=== PATIENT | male | born 1960 | race African-American/Black ===

== ENCOUNTER 2018-08-28 12:15 | Inpatient (IN) ==
[2018-08-28] MEDS ORDERED: cefTRIAXone 1,000 MG in SODIUM CHLORIDE 0.9% 100 ML IV STA (12:43)
[2018-08-28 13:03] LABS: Basophils # 0.1 10*3/uL (0.0-0.2); Basophils % 0.6 % (0.0-0.8); Eosinophils # 0.2 10*3/uL (0.0-0.87); Eosinophils % 2.7 % (0.00-10.9); Hematocrit 37.4 VOL% (42.0-52.0); Hemoglobin 11.4 GM/DL (14.0-18.0); Immature Granulocytes % 0.7 %; Immature Granulocytes Absolute 0.06 #; Lymphocytes # 0.6 10*3/uL (1.4-4.0); Lymphocytes % 7.1 % (21.2-54.2); Mean Corpuscular HGB Conc 30.5 GM/DL (32-36); Mean Corpuscular Volume 90.3 FL (87-102); Mean Platelet Volume 11.1 FL (9.6-12.0); Neutrophils % 74.9 % (38.7-73.9); Platelet Count 140 T/CUMM (130-400); Red Blood Count 4.14 MC/CUMM (3.8-5.5); White Blood Count 8.8 T/CUMM (4-12)
[2018-08-28 13:21] LABS: PT Patient Result 10.7 SECS
[2018-08-28 13:33] LABS: Albumin 3.5 G/DL (3.4-5.0); Bilirubin,Total 1.2 MG/DL (0.2-1.0); Calcium 8.7 MG/DL (8.5-10.1); Osmolality,Calculated 320.8 MOS/KG (273-304); Total Protein 7.6 G/DL (6.4-8.3)
[2018-08-28 13:39] LABS: Salicylate < 2.8 MG/DL (2.8-20)
[2018-08-28 13:40] LABS: Acetaminophen < 2.0 UG/ML (10-30)
[2018-08-28 13:48] LABS: Apearance,Urine CLEAR (Clear); Bilirubin,Urine Negative (Negative); Blood, Urine Small mg/dL (Negative); Glucose,Urine (UA) Negative (Negative); Ketones,Urine Negative (Negative); Mucus,Urine Occasional /LPF (Occasional); Nitrite,Urine Negative (Negative); Protein,Urine Negative; RBC,Urine 5 /HPF (0-4); Urine Color Yellow (Yellow); Urine Specific Gravity 1.012 (1.001-1.035); Urine Urobilinogen < 2.0 EU/DL (0.2-1.0); WBC,Urine 2 /HPF (0-6)
[2018-08-28 14:06] LABS: Barbiturates Screen,Urine Negative (Negative); Benzodiazepines Screen,Urine Negative (Negative); Cannabinoid Screen,Urine Negative (Negative); Opiate Screen,Urine Negative (Negative); Phencyclidine Screen,Urine Negative (Negative)
[2018-08-28] MEDS ORDERED: SODIUM CHLORIDE 0.9% 1,000 ML IV STA ×2 (14:26→15:51)
[2018-08-28 14:31] LABS: Sedimentation Rate-Westergren 89 MM/HR (0-20)
[2018-08-28] MEDS ORDERED: ONDANSETRON 4 MG/2 ML VIAL IV PRN (16:06)
[2018-08-28] MEDS ORDERED: ENOXAPARIN 30 MG/0.3 ML SYRINGE SUBCUT SCH (17:00)
[2018-08-28] MEDS: SODIUM CHLORIDE 0.9% 1,000 ML IV SCH (18:58)
[2018-08-28] MEDS: TAMSULOSIN 0.4 MG CAPSULE PO SCH (20:30)
[2018-08-28] MEDS: ENOXAPARIN 30 MG/0.3 ML SYRINGE SUBCUT SCH (22:48)
[2018-08-28] MEDS: PIPERACILLIN/TAZOBACTAM 3,375 MG in SODIUM CHLORIDE 0.9% 100 ML IV SCH (22:56)
[2018-08-29 05:12] LABS: Basophils % 0.6 % (0.0-0.8); Eosinophils # 0.4 10*3/uL (0.0-0.87); Eosinophils % 6.1 % (0.00-10.9); Hemoglobin 10.1 GM/DL (14.0-18.0); Immature Granulocytes % 0.6 %; Immature Granulocytes Absolute 0.04 #; Lymphocytes # 0.9 10*3/uL (1.4-4.0); Lymphocytes % 12.7 % (21.2-54.2); Mean Corpuscular HGB Conc 30.6 GM/DL (32-36); Mean Corpuscular Volume 90.9 FL (87-102); Monocytes % 13.9 % (1.7-12.7); Neutrophils % 66.1 % (38.7-73.9); Platelet Count 136 T/CUMM (130-400); Red Blood Count 3.63 MC/CUMM (3.8-5.5); Red Cell Distribution Width 12.9 % (9.3-17.3); White Blood Count 6.8 T/CUMM (4-12)
[2018-08-29 05:50] LABS: Albumin 2.9 G/DL (3.4-5.0); Bilirubin,Total 1.2 MG/DL (0.2-1.0); Osmolality,Calculated 319.9 MOS/KG (273-304); Risk Ratio 2.61; Thyroid Stimulating Hormone 0.231 uIU/ml (0.358-3.74); Total Protein 6.4 G/DL (6.4-8.3); VLDL CHOLESTEROL 17.8 MG/DL
[2018-08-29] MEDS: SODIUM CHLORIDE 0.9% 1,000 ML IV SCH ×2 (06:45→06:51)
[2018-08-29] MEDS ORDERED: BUPIVACAINE 0.25% /EPI 10 ML VIAL ONE ×2 (09:14→10:22)
[2018-08-29] MEDS ORDERED: TISSUE ADHESIVE 1 EACH APPLICATOR TOP ONE (09:14)
[2018-08-29] MEDS: DEXTROSE 5% NACL 0.45% 1,000 ML IV SCH ×2 (09:17→18:09)
[2018-08-29] MEDS: PANTOPRAZOLE 40 MG TABLET PO SCH (09:18)
[2018-08-29] MEDS: PIPERACILLIN/TAZOBACTAM 3,375 MG in SODIUM CHLORIDE 0.9% 100 ML IV SCH (13:34)
[2018-08-29] MEDS ORDERED: ALBUMIN 5% 12.5 GM/250 ML VIAL IV ONE (14:51)
[2018-08-29] MEDS ORDERED: PROPOFOL 200 MG/20 ML VIAL IV ONE (14:51)
[2018-08-29] MEDS ORDERED: SEVOFLURANE 1 UNIT/15 MINUTE INH ONE (14:51)
[2018-08-29] MEDS ORDERED: SUFentanil 50 MCG/ML AMP ONE (14:52)
[2018-08-29] MEDS ORDERED: DEXAMETHASONE 4 MG/1 ML VIAL ONE (14:52)
[2018-08-29] MEDS ORDERED: ONDANSETRON 4 MG/2 ML VIAL ONE (14:52)
[2018-08-29] MEDS ORDERED: LACTATED RINGERS 2,000 ML IV ONE (14:53)
[2018-08-29] MEDS ORDERED: VECURONIUM 10 MG VIAL IV ONE (14:53)
[2018-08-29] MEDS ORDERED: PHENYLEPHRINE 1 MG/10 ML SYRINGE IV ONE (14:53)
[2018-08-29] MEDS ORDERED: NEOSTIGMINE 10 MG/10 ML VIAL ONE (14:53)
[2018-08-29] MEDS ORDERED: GLYCOPYRROLATE 0.4 MG/2 ML VIAL ONE (14:53)
[2018-08-29] MEDS: TAMSULOSIN 0.4 MG CAPSULE PO SCH (16:46)
[2018-08-29] MEDS ORDERED: VANCOMYCIN INJ 1,750 MG in SODIUM CHLORIDE 0.9% 500 ML IV SCH (18:00)
[2018-08-29] MEDS: ENOXAPARIN 30 MG/0.3 ML SYRINGE SUBCUT SCH (20:55)
[2018-08-30] MEDS: PIPERACILLIN/TAZOBACTAM 3,375 MG in SODIUM CHLORIDE 0.9% 100 ML IV SCH ×2 (03:00→13:51)
[2018-08-30] MEDS ORDERED: SODIUM CHLORIDE 0.9% 500 ML IV ONE (04:16)
[2018-08-30 04:20] LABS: Basophils % 0.5 % (0.0-0.8); Eosinophils # 0.1 10*3/uL (0.0-0.87); Eosinophils % 1.4 % (0.00-10.9); Hematocrit 27.7 VOL% (42.0-52.0); Hemoglobin 8.4 GM/DL (14.0-18.0); Immature Granulocytes % 0.9 %; Immature Granulocytes Absolute 0.07 #; Lymphocytes # 0.9 10*3/uL (1.4-4.0); Lymphocytes % 10.8 % (21.2-54.2); Mean Corpuscular HGB Conc 30.3 GM/DL (32-36); Mean Platelet Volume 11.2 FL (9.6-12.0); Monocytes % 11.9 % (1.7-12.7); Neutrophils % 74.5 % (38.7-73.9); Platelet Count 152 T/CUMM (130-400); Red Blood Count 2.98 MC/CUMM (3.8-5.5); Red Cell Distribution Width 12.9 % (9.3-17.3); White Blood Count 7.8 T/CUMM (4-12)
[2018-08-30 04:44] LABS: Albumin 2.6 G/DL (3.4-5.0); Bilirubin,Total 1.1 MG/DL (0.2-1.0); Calcium 8.2 MG/DL (8.5-10.1); Osmolality,Calculated 324.4 MOS/KG (273-304); Total Protein 5.6 G/DL (6.4-8.3)
[2018-08-30] MEDS: DEXTROSE 5% NACL 0.45% 1,000 ML IV SCH (05:33)
[2018-08-30] MEDS: DEXTROSE 5% 1,000 ML IV SCH ×2 (09:17→21:29)
[2018-08-30] MEDS: PANTOPRAZOLE 40 MG TABLET PO SCH (09:18)
[2018-08-30] MEDS: TAMSULOSIN 0.4 MG CAPSULE PO SCH (16:16)
[2018-08-30] MEDS: VANCOMYCIN INJ 1,750 MG in SODIUM CHLORIDE 0.9% 500 ML IV SCH (20:00)
[2018-08-30] MEDS: ENOXAPARIN 40 MG/0.4 ML SYRINGE SUBCUT SCH (21:29)
[2018-08-31] MEDS: PIPERACILLIN/TAZOBACTAM 3,375 MG in SODIUM CHLORIDE 0.9% 100 ML IV SCH ×2 (02:49→16:50)
[2018-08-31 06:11] LABS: Basophils % 0.5 % (0.0-0.8); Eosinophils # 0.4 10*3/uL (0.0-0.87); Eosinophils % 6.4 % (0.00-10.9); Hematocrit 23.9 VOL% (42.0-52.0); Hemoglobin 7.2 GM/DL (14.0-18.0); Immature Granulocytes % 1.3 %; Immature Granulocytes Absolute 0.08 #; Lymphocytes # 1.2 10*3/uL (1.4-4.0); Lymphocytes % 19.3 % (21.2-54.2); Mean Corpuscular HGB Conc 30.1 GM/DL (32-36); Mean Corpuscular Volume 92.3 FL (87-102); Mean Platelet Volume 11.3 FL (9.6-12.0); Monocytes % 11.3 % (1.7-12.7); Neutrophils % 61.2 % (38.7-73.9); Platelet Count 129 T/CUMM (130-400); Red Blood Count 2.59 MC/CUMM (3.8-5.5); Red Cell Distribution Width 12.9 % (9.3-17.3); White Blood Count 6.2 T/CUMM (4-12)
[2018-08-31] MEDS: DEXTROSE 5% 1,000 ML IV SCH (06:17)
[2018-08-31 06:31] LABS: Albumin 2.7 G/DL (3.4-5.0); Bilirubin,Total 1.7 MG/DL (0.2-1.0); Calcium 7.7 MG/DL (8.5-10.1); Osmolality,Calculated 313.6 MOS/KG (273-304); Total Protein 5.7 G/DL (6.4-8.3)
[2018-08-31] MEDS ORDERED: SODIUM CHLORIDE 0.9% 1,000 ML IV PRN ×2 (08:44→11:49)
[2018-08-31] MEDS ORDERED: FUROSEMIDE 20 MG/2 ML VIAL IV PRN ×2 (08:44→16:14)
[2018-08-31] MEDS: TAMSULOSIN 0.4 MG CAPSULE PO SCH (17:00)
[2018-08-31] MEDS: PANTOPRAZOLE 40 MG TABLET PO SCH (17:38)
[2018-08-31] MEDS: VANCOMYCIN INJ 1,750 MG in SODIUM CHLORIDE 0.9% 500 ML IV SCH (18:26)
[2018-08-31] MEDS: ENOXAPARIN 40 MG/0.4 ML SYRINGE SUBCUT SCH (21:19)
[2018-08-31 22:46] LABS: Hematocrit 26.4 VOL% (42.0-52.0); Hemoglobin 8.3 GM/DL (14.0-18.0)
[2018-09-01] MEDS: DEXTROSE 5% 1,000 ML IV SCH ×3 (02:51→23:37)
[2018-09-01 04:35] LABS: Basophils % 0.4 % (0.0-0.8); Eosinophils # 0.7 10*3/uL (0.0-0.87); Eosinophils % 8.7 % (0.00-10.9); Hematocrit 26.2 VOL% (42.0-52.0); Hemoglobin 8.2 GM/DL (14.0-18.0); Immature Granulocytes % 2.1 %; Immature Granulocytes Absolute 0.17 #; Lymphocytes # 1.6 10*3/uL (1.4-4.0); Lymphocytes % 19.9 % (21.2-54.2); Mean Corpuscular HGB Conc 31.3 GM/DL (32-36); Mean Corpuscular Volume 91.3 FL (87-102); Mean Platelet Volume 11.1 FL (9.6-12.0); Monocytes % 10.5 % (1.7-12.7); NRBC # 0.02 10*3/uL; Neutrophils % 58.4 % (38.7-73.9); Platelet Count 147 T/CUMM (130-400); Red Blood Count 2.87 MC/CUMM (3.8-5.5); Red Cell Distribution Width 13.1 % (9.3-17.3); White Blood Count 7.9 T/CUMM (4-12)
[2018-09-01] MEDS: PIPERACILLIN/TAZOBACTAM 3,375 MG in SODIUM CHLORIDE 0.9% 100 ML IV SCH ×3 (05:22→16:29)
[2018-09-01] MEDS: PANTOPRAZOLE 40 MG TABLET PO SCH (08:29)
[2018-09-01 14:10] LABS: ABG Base Excess 1.6 MMOL/L (-2.5-2.5); ABG HCO3 25.8 MMOL/L (20-26); ABG PCO2 36.1 MM HG (35-48); ABG PH 7.455 (7.35-7.45); ABG PO2 84.9 MM HG (80-95); ABG TCO2 23.5 MMOL/L (23-27); Allen Test Positive; Pt O2 Delivery Device Room Air
[2018-09-01] MEDS: HYDROCORTISONE 100 MG VIAL IV SCH ×2 (16:21→22:55)
[2018-09-01] MEDS: TAMSULOSIN 0.4 MG CAPSULE PO SCH (16:21)
[2018-09-01] MEDS: ALBUTEROL/IPRATROPIUM 3 ML NEB RESP TX SCH ×3 (17:36→23:50)
[2018-09-01] MEDS: VANCOMYCIN INJ 1,750 MG in SODIUM CHLORIDE 0.9% 500 ML IV SCH (18:38)
[2018-09-01] MEDS: ENOXAPARIN 40 MG/0.4 ML SYRINGE SUBCUT SCH (22:55)
[2018-09-02] MEDS: PIPERACILLIN/TAZOBACTAM 3,375 MG in SODIUM CHLORIDE 0.9% 100 ML IV SCH ×3 (01:30→16:33)
[2018-09-02] MEDS: ALBUTEROL/IPRATROPIUM 3 ML NEB RESP TX SCH ×6 (03:28→23:39)
[2018-09-02] MEDS: HYDROCORTISONE 100 MG VIAL IV SCH ×2 (05:38→15:25)
[2018-09-02 08:42] LABS: Calcium 7.1 MG/DL (8.5-10.1); Osmolality,Calculated 302.1 MOS/KG (273-304)
[2018-09-02] MEDS: PANTOPRAZOLE 40 MG TABLET PO SCH (09:07)
[2018-09-02] MEDS ORDERED: POTASSIUM CHLORIDE 20 MEQ TABLET PO ONE (09:48)
[2018-09-02] MEDS: TAMSULOSIN 0.4 MG CAPSULE PO SCH ×2 (10:27→22:16)
[2018-09-02] MEDS: DEXTROSE 5% 1,000 ML IV SCH ×2 (16:36→20:50)
[2018-09-02] MEDS: cefTRIAXone 1,000 MG in SYRINGE 1 EACH IV SCH (17:17)
[2018-09-02] MEDS: VANCOMYCIN INJ 1,750 MG in SODIUM CHLORIDE 0.9% 500 ML IV SCH (17:17)
[2018-09-02] MEDS: ENOXAPARIN 40 MG/0.4 ML SYRINGE SUBCUT SCH (22:16)
[2018-09-03] MEDS: ALBUTEROL/IPRATROPIUM 3 ML NEB RESP TX SCH ×5 (03:36→21:05)
[2018-09-03 05:00] LABS: Calcium 7.1 MG/DL (8.5-10.1); Osmolality,Calculated 298.4 MOS/KG (273-304)
[2018-09-03] MEDS ORDERED: HYDROCORTISONE 100 MG VIAL IV SCH (09:00)
[2018-09-03] MEDS: PANTOPRAZOLE 40 MG TABLET PO SCH (09:18)
[2018-09-03] MEDS: POTASSIUM CHLORIDE 20 MEQ TABLET PO PRN ×2 (09:18→14:22)
[2018-09-03] MEDS: TAMSULOSIN 0.4 MG CAPSULE PO SCH ×2 (09:18→20:00)
[2018-09-03] MEDS: DEXTROSE 5% 1,000 ML IV SCH (09:26)
[2018-09-03] MEDS: cefTRIAXone 1,000 MG in SYRINGE 1 EACH IV SCH (17:53)
[2018-09-03] MEDS: ENOXAPARIN 40 MG/0.4 ML SYRINGE SUBCUT SCH (20:00)
[2018-09-04] MEDS: ALBUTEROL/IPRATROPIUM 3 ML NEB RESP TX SCH ×4 (00:30→11:09)
[2018-09-04 08:14] VITALS: BP 144/79
[2018-09-04] MEDS: TAMSULOSIN 0.4 MG CAPSULE PO SCH (08:43)
[2018-09-04] MEDS: PANTOPRAZOLE 40 MG TABLET PO SCH (08:44)
[2018-09-04] MEDS ORDERED: predniSONE 20 MG TABLET PO SCH (09:00)
== END 2018-09-04 11:52 | disposition home or self-care (01) | DRG 418 ==
LOC: EDBD → EDUNIT# → N.ED 12:15 → N.EDINP 15:54 → N.4E 19:12
PROVIDERS: ADMIT Internal Medicine; ATTEND Internal Medicine
PROC: LAPCHOL (2018-08-29 09:48)

== ENCOUNTER 2018-09-26 08:08 | Inpatient (IN) ==
[2018-09-26 08:45] LABS: Basophils % 0.4 % (0.0-0.8); Eosinophils # 0.4 10*3/uL (0.0-0.87); Eosinophils % 5.7 % (0.00-10.9); Hematocrit 30.5 VOL% (42.0-52.0); Hemoglobin 9.1 GM/DL (14.0-18.0); Immature Granulocytes % 3.9 %; Immature Granulocytes Absolute 0.28 #; Lymphocytes # 2.1 10*3/uL (1.4-4.0); Lymphocytes % 29.4 % (21.2-54.2); Mean Corpuscular HGB Conc 29.8 GM/DL (32-36); Mean Corpuscular Volume 93.6 FL (87-102); Mean Platelet Volume 9.8 FL (9.6-12.0); Monocytes % 6.8 % (1.7-12.7); Neutrophils % 53.8 % (38.7-73.9); Platelet Count 132 T/CUMM (130-400); Red Blood Count 3.26 MC/CUMM (3.8-5.5); White Blood Count 7.2 T/CUMM (4-12)
[2018-09-26 09:18] LABS: Albumin 2.6 G/DL (3.4-5.0); Bilirubin,Total 0.7 MG/DL (0.2-1.0); Calcium 7.4 MG/DL (8.5-10.1); Osmolality,Calculated 290.7 MOS/KG (273-304); Thyroid Stimulating Hormone 1.57 uIU/ml (0.358-3.74); Total Protein 5.6 G/DL (6.4-8.3)
[2018-09-26] MEDS ORDERED: ZALEPLON 5 MG CAPSULE PO PRN (11:34)
[2018-09-26] MEDS ORDERED: ONDANSETRON 4 MG/2 ML VIAL IV PRN (11:38)
[2018-09-26] MEDS: ALBUTEROL/IPRATROPIUM 3 ML NEB RESP TX PRN (11:50)
[2018-09-26] MEDS: NYSTATIN 500,000 UNIT/5 ML UDCUP SWISH/SWAL SCH ×3 (14:38→20:13)
[2018-09-26] MEDS: OLANZapine 2.5 MG TABLET PO SCH ×2 (16:42→20:13)
[2018-09-26] MEDS: POTASSIUM CHLORIDE 20 MEQ TABLET PO SCH (16:42)
[2018-09-26] MEDS: TAMSULOSIN 0.4 MG CAPSULE PO SCH (20:12)
[2018-09-26] MEDS: ZINC OXIDE PASTE 113 GM TUBE TOP SCH (20:12)
[2018-09-26] MEDS: ENOXAPARIN 30 MG/0.3 ML SYRINGE SUBCUT SCH (20:12)
[2018-09-26] MEDS: buPROPion XL 150 MG TABLET PO SCH (20:13)
[2018-09-26] MEDS: MAGNESIUM CHLORIDE 64 MG TABLET PO SCH (20:13)
[2018-09-27] MEDS: ALBUTEROL/IPRATROPIUM 3 ML NEB RESP TX PRN (00:15)
[2018-09-27 06:33] LABS: Basophils % 0.5 % (0.0-0.8); Calcium 7.5 MG/DL (8.5-10.1); Eosinophils # 0.4 10*3/uL (0.0-0.87); Eosinophils % 5.7 % (0.00-10.9); Hematocrit 30.6 VOL% (42.0-52.0); Immature Granulocytes % 2.9 %; Immature Granulocytes Absolute 0.19 #; Lymphocytes # 1.6 10*3/uL (1.4-4.0); Lymphocytes % 24.8 % (21.2-54.2); Mean Corpuscular HGB Conc 29.4 GM/DL (32-36); Mean Corpuscular Volume 93.9 FL (87-102); Mean Platelet Volume 9.7 FL (9.6-12.0); Monocytes % 7.9 % (1.7-12.7); Neutrophils % 58.2 % (38.7-73.9); Osmolality,Calculated 289.8 MOS/KG (273-304); Platelet Count 124 T/CUMM (130-400); Red Blood Count 3.26 MC/CUMM (3.8-5.5); Risk Ratio 2.95; VLDL CHOLESTEROL 28.6 MG/DL; White Blood Count 6.6 T/CUMM (4-12)
[2018-09-27] MEDS ORDERED: ceFAZolin 1,000 MG VIAL IRRIG ONE (08:10)
[2018-09-27] MEDS ORDERED: DIAZEPAM 5 MG TABLET PO ONE (08:10)
[2018-09-27] MEDS ORDERED: ceFAZolin 1,000 MG in SYRINGE 1 EACH IV ONE (08:10)
[2018-09-27] MEDS ORDERED: diphenhydrAMINE CAP 25 MG CAPSULE PO ONE (08:10)
[2018-09-27] MEDS ORDERED: SODIUM CHLORIDE 0.9% 1,000 ML IV SCH (08:30)
[2018-09-27] MEDS ORDERED: Fluticasone Furoate-Vilanterol [Breo Ellipta] INH SCH (09:00)
[2018-09-27] MEDS: FOLIC ACID 0.4 MG TABLET PO SCH (09:18)
[2018-09-27] MEDS: MAGNESIUM CHLORIDE 64 MG TABLET PO SCH ×2 (09:18→20:49)
[2018-09-27] MEDS: POTASSIUM CHLORIDE 20 MEQ TABLET PO SCH (09:18)
[2018-09-27] MEDS: TAMSULOSIN 0.4 MG CAPSULE PO SCH ×2 (09:18→20:49)
[2018-09-27] MEDS: buPROPion XL 150 MG TABLET PO SCH ×2 (09:18→20:49)
[2018-09-27] MEDS: ASPIRIN EC 81 MG TABLET PO SCH (09:19)
[2018-09-27] MEDS: predniSONE 20 MG TABLET PO SCH (09:19)
[2018-09-27] MEDS: PANTOPRAZOLE 40 MG TABLET PO SCH (09:19)
[2018-09-27] MEDS: NYSTATIN 500,000 UNIT/5 ML UDCUP SWISH/SWAL SCH ×4 (09:20→20:49)
[2018-09-27] MEDS: ZINC OXIDE PASTE 113 GM TUBE TOP SCH ×2 (09:20→20:49)
[2018-09-27] MEDS: DOCUSATE SODIUM 100 MG CAPSULE PO SCH (09:20)
[2018-09-27] MEDS ORDERED: ceFAZolin 1,000 MG VIAL ONE (10:45)
[2018-09-27] MEDS ORDERED: methylPREDNISolone SOD SUC 125 MG/2 ML VIAL ONE (10:45)
[2018-09-27] MEDS ORDERED: MIDAZOLAM 2 MG/2 ML VIAL ONE (10:45)
[2018-09-27] MEDS ORDERED: TISSUE ADHESIVE 1 EACH APPLICATOR TOP ONE (10:45)
[2018-09-27] MEDS ORDERED: fentaNYL 100 MCG/2 ML VIAL ONE (10:45)
[2018-09-27] MEDS ORDERED: LIDOCAINE 1% 20 ML VIAL ONE (10:45)
[2018-09-27] MEDS ORDERED: oxyCODONE/ACETAMINOPHEN 5-325 MG TABLET PO PRN (12:06)
[2018-09-27] MEDS: OLANZapine 2.5 MG TABLET PO SCH ×2 (16:26→20:49)
[2018-09-27] MEDS: ENOXAPARIN 30 MG/0.3 ML SYRINGE SUBCUT SCH (20:49)
[2018-09-28 03:26] LABS: Basophils % 0.2 % (0.0-0.8); Hematocrit 31.5 VOL% (42.0-52.0); Hemoglobin 9.3 GM/DL (14.0-18.0); Immature Granulocytes % 1.2 %; Lymphocytes # 0.6 10*3/uL (1.4-4.0); Lymphocytes % 6.6 % (21.2-54.2); Mean Corpuscular HGB Conc 29.5 GM/DL (32-36); Mean Corpuscular Volume 92.9 FL (87-102); Mean Platelet Volume 10.5 FL (9.6-12.0); Platelet Count 148 T/CUMM (130-400); Red Blood Count 3.39 MC/CUMM (3.8-5.5); Red Cell Distribution Width 14.8 % (9.3-17.3); White Blood Count 8.7 T/CUMM (4-12)
[2018-09-28 03:36] LABS: Calcium 7.8 MG/DL (8.5-10.1); Osmolality,Calculated 292.8 MOS/KG (273-304)
[2018-09-28] MEDS: FOLIC ACID 0.4 MG TABLET PO SCH (09:19)
[2018-09-28] MEDS: ASPIRIN EC 81 MG TABLET PO SCH (09:19)
[2018-09-28] MEDS: predniSONE 20 MG TABLET PO SCH (09:19)
[2018-09-28] MEDS: buPROPion XL 150 MG TABLET PO SCH ×2 (09:19→20:36)
[2018-09-28] MEDS: TAMSULOSIN 0.4 MG CAPSULE PO SCH ×2 (09:19→20:36)
[2018-09-28] MEDS: MAGNESIUM CHLORIDE 64 MG TABLET PO SCH ×2 (09:19→20:36)
[2018-09-28] MEDS: PANTOPRAZOLE 40 MG TABLET PO SCH (09:19)
[2018-09-28] MEDS: POTASSIUM CHLORIDE 20 MEQ TABLET PO SCH (09:19)
[2018-09-28] MEDS: NYSTATIN 500,000 UNIT/5 ML UDCUP SWISH/SWAL SCH ×4 (09:19→20:36)
[2018-09-28] MEDS: DOCUSATE SODIUM 100 MG CAPSULE PO SCH (09:19)
[2018-09-28] MEDS: ZINC OXIDE PASTE 113 GM TUBE TOP SCH ×2 (09:20→20:37)
[2018-09-28] MEDS: OLANZapine 2.5 MG TABLET PO SCH ×2 (15:20→20:36)
[2018-09-28] MEDS ORDERED: ENOXAPARIN 40 MG/0.4 ML SYRINGE SUBCUT SCH (21:00)
[2018-09-29] MEDS: buPROPion XL 150 MG TABLET PO SCH (08:47)
[2018-09-29] MEDS: NYSTATIN 500,000 UNIT/5 ML UDCUP SWISH/SWAL SCH ×2 (08:47→13:39)
[2018-09-29] MEDS: predniSONE 20 MG TABLET PO SCH (08:47)
[2018-09-29] MEDS: FOLIC ACID 0.4 MG TABLET PO SCH (08:47)
[2018-09-29] MEDS: MAGNESIUM CHLORIDE 64 MG TABLET PO SCH (08:47)
[2018-09-29] MEDS: DOCUSATE SODIUM 100 MG CAPSULE PO SCH (08:47)
[2018-09-29] MEDS: TAMSULOSIN 0.4 MG CAPSULE PO SCH (08:47)
[2018-09-29] MEDS: POTASSIUM CHLORIDE 20 MEQ TABLET PO SCH (08:48)
[2018-09-29] MEDS: PANTOPRAZOLE 40 MG TABLET PO SCH (08:48)
[2018-09-29] MEDS: ZINC OXIDE PASTE 113 GM TUBE TOP SCH (08:49)
[2018-09-29] MEDS: ASPIRIN EC 81 MG TABLET PO SCH (08:49)
[2018-09-29 12:25] VITALS: BP 153/84
== END 2018-09-29 13:59 | disposition home health service (06) | DRG 243 ==
LOC: EDUNIT# → EDBD → N.ED 08:08 → N.EDINP 11:20 → SUATTDRO 11:38 → N.EDINP 11:56 → N.TELES 12:50
PROVIDERS: ADMIT Internal Medicine; ATTEND Emergency Medicine